=== PATIENT | male | born 1945 | race Caucasian/White ===

== ENCOUNTER 2018-01-24 15:46 | Emergency (ER) | payer MEDICARE, OTHER ==
[~2018-01-24] VITALS: Ht 190.5 cm; Wt 127.0 kg
[~2018-01-24 15:46] MED LIST: ASPI325 PO; ASPI325EC PO; ATEN25 PO; ATOR40TA PO; CLOB.05TC TOP; ERGO400 PO; EZET10 PO; NAPR220 PO; OXYACE5T PO; PROM25 PO; RAMI2.5 PO; RANO500T PO; SILD50TA PO; STELARA45 MG/0.5
[2018-01-24 16:42] LABS: BASOPHILS ABSOLUTE AUTO 0.02 K/mm3 (0.00-0.23); BASOPHILS PERCENT AUTO 0 % (0-2); EOSINOPHILS ABSOLUTE AUTO 0.13 K/mm3 (0.00-0.68); EOSINOPHILS PERCENT AUTO 2 % (0-6); Hematocrit 44.6 % (37.0-53.0); Hemoglobin 14.4 g/dL (13.5-17.5); IMMATURE GRAN ABSOLUTE AUTO 0.04 K/mm3 (0.00-0.10); IMMATURE GRAN PERCENT AUTO 1 % (0-1); LYMPHOCYTES ABSOLUTE AUTO 1.87 K/mm3 (0.84-5.20); LYMPHOCYTES PERCENT AUTO 25 % (21-46); MONOCYTES ABSOLUTE AUTO 0.56 K/mm3 (0.16-1.47); MONOCYTES PERCENT AUTO 7 % (4-13); Mean Corpuscular HGB 31.2 pg (26.0-34.0); Mean Corpuscular HGB Conc 32.3 g/dL (31.5-36.5); Mean Corpuscular Volume 97 fL (80-100); Mean Platelet Volume 10.8 fL (9.1-12.4); NEUTROPHILS PERCENT AUTO 66 % (41-73); Platelet Count 227 K/mm3 (150-400); RDW Coefficient Variation 11.9 % (11.7-14.2); RDW Standard Deviation 42.3 fL (35.1-46.3); Red Blood Cell Count 4.62 M/mm3 (4.30-5.90); White Blood Cell Count 7.62 K/mm3 (4.00-11.30)
[2018-01-24 17:05] LABS: Alanine Aminotransfer (ALT/SGP 22 U/L (12-78); Albumin, Blood 3.9 g/dL (3.4-5.0); Alk Phos 89 U/L (50-136); Anion Gap 5 mmol/L (6-16); Aspartate Aminotrans (AST/SGOT 20 U/L (12-37); Bilirubin, Total 0.7 mg/dL (0.1-1.0); Blood Urea Nitrogen 17 mg/dL (8-24); Bun/Creatinine Ratio 15.7 (12.0-20.0); CO2, Blood 29 mmol/L (21-32); Chloride, Blood 106 mmol/L (98-108); Creatinine, Blood 1.08 mg/dL (0.60-1.20); Globulin, Blood 3.8 g/dL (2.2-4.0); Glomerular Filtration Rate >60 (60-); Glucose, Blood 95 mg/dL (70-99); Potassium, Blood 4.4 mmol/L (3.5-5.5); Sodium, Blood 140 mmol/L (136-145); Total Protein, Blood 7.7 g/dL (6.4-8.2)
[2018-01-24] MEDS ORDERED: VITAMIN D-32000 UNIT PO (17:10)
[2018-01-24] MEDS ORDERED: MECL12.5 PO (19:24)
[2018-04-26] MEDS ORDERED: Colace100 MG PO (14:44)
[2018-04-26] MEDS ORDERED: STELARA90 MG/1 ML SC (14:46)
== END 2018-01-24 19:47 | disposition home or self-care (01) ==
LOC: ER 15:46
PROVIDERS: Internal Medicine
DX: R42 Dizziness and giddiness (principal); I25.10 Atherosclerotic heart disease of native coronary artery without angina pectoris; I10 Essential (primary) hypertension; Z79.899 Other long term (current) drug therapy; Z79.82 Long term (current) use of aspirin; Z87.891 Personal history of nicotine dependence
CPT/HCPCS: 36415; 80053; 84484; 85025; 93005; 93010; 99283

== ENCOUNTER 2018-03-22 05:40 | Day surgery (SDC) | payer MEDICARE, OTHER ==
[~2018-03-22] VITALS: Ht 190.5 cm; Wt 120.0 kg
[~2018-03-22 05:40] MED LIST changes: +MECL12.5 PO; +VITAMIN D-32000 UNIT PO
== END 2018-03-22 09:45 | disposition home or self-care (01) ==
LOC: MHTC 05:40
PROC: 02HK3JZ Insertion of Pacemaker Lead into Right Ventricle, Percutaneous Approach (ICD-10-PCS; principal; 2018-03-22)
PROC: 02H63JZ Insertion of Pacemaker Lead into Right Atrium, Percutaneous Approach (ICD-10-PCS; principal; 2018-03-22)
PROC: 0JH606Z Insertion of Pacemaker, Dual Chamber into Chest Subcutaneous Tissue and Fascia, Open Approach (ICD-10-PCS; principal; 2018-03-22)
PROC: B51NYZZ Fluoroscopy of Left Upper Extremity Veins using Other Contrast (ICD-10-PCS; principal; 2018-03-22)
DX: I49.5 Sick sinus syndrome (principal); I10 Essential (primary) hypertension; E78.00 Pure hypercholesterolemia, unspecified; G47.33 Obstructive sleep apnea (adult) (pediatric); I25.118 Atherosclerotic heart disease of native coronary artery with other forms of angina pectoris
CPT/HCPCS: 33208; 71046; 93005; 93010; 99152; 99153; C1785; C1898; J0690; J1644; J2250; J3010; J7030; J7040; Q9967

== ENCOUNTER 2018-04-27 05:37 | Day surgery (SDC) | payer MEDICARE, OTHER ==
[~2018-04-27] VITALS: Ht 190.5 cm; Wt 121.3 kg
[~2018-04-27 05:37] MED LIST changes: +Colace100 MG PO; +STELARA90 MG/1 ML SC
[2018-04-28] MEDS ORDERED: CLOP75 PO (09:57)
== END 2018-04-28 10:24 | disposition home or self-care (01) ==
LOC: MHTC 05:37 → PCU 15:51 → MHTC 04-28 10:24
PROC: 027034Z Dilation of Coronary Artery, One Artery with Drug-eluting Intraluminal Device, Percutaneous Approach (ICD-10-PCS; principal; 2018-04-27)
PROC: 4A033BC Measurement of Arterial Pressure, Coronary, Percutaneous Approach (ICD-10-PCS; principal; 2018-04-27)
DX: I25.10 Atherosclerotic heart disease of native coronary artery without angina pectoris (principal); I73.9 Peripheral vascular disease, unspecified; E66.9 Obesity, unspecified; Z87.891 Personal history of nicotine dependence; I10 Essential (primary) hypertension; E78.5 Hyperlipidemia, unspecified; E78.00 Pure hypercholesterolemia, unspecified; G47.33 Obstructive sleep apnea (adult) (pediatric)
CPT/HCPCS: 37252; 85347; 93005; 93010; 93455; 99152; 99153; C1725; C1753; C1769; C1874; C1894; C9600; J1644; J2250; J2720; J3010; J7030; Q9967

== ENCOUNTER → 2021-07-02 | Outpatient (CLI) | payer MEDICARE, OTHER ==
[~2021-07-02] MED LIST changes: +CLOP75 PO
== END ==
LOC: LAB 11:35 → LAB SHORT 11:35
DX: D48.5 Neoplasm of uncertain behavior of skin (principal); L28.1 Prurigo nodularis
CPT/HCPCS: 88305; 88312

== ENCOUNTER 2021-10-17 06:38 | Day surgery (SDC) | payer MEDICARE, OTHER ==
[~2021-10-17] VITALS: Ht 190.5 cm; Wt 133.0 kg
[~2021-10-17 06:38] MED LIST changes: +Crestor20 MG PO; +PANT40 PO; +XARELTO2.5 M1 PO; +XARELTO20 MG PO
[2021-10-17] MEDS ORDERED: AMLO5 PO (07:29)
--- NOTE | 2021-10-17 09:10 | NUR ---
RETURNED TO RECOVERY ROOM VIA [facility]NEY. LEFT GROIN SITE SOFT NONTENDER. NO BLEEDING.
[2021-10-17] MEDS ORDERED: XARELTO20 MG PO (09:19)
--- NOTE | 2021-10-17 09:30 | NUR ---
DR. ANDRE HERE TO DISCUSS PROCEDURE WITH PT AND .
--- NOTE | 2021-10-17 12:05 | NUR ---
AMBULATED TO BATHROOM. TOLERATED WELL. NO BLEEDING AT SITE. 1215 DRESSING FOR DISCHARGE. IV REMOVED INTACT.2X2,COBAN AND MANUAL PRESSURE HELD.
--- NOTE | 2021-10-17 12:30 | NUR ---
DISCHARGED HOME VIA WHEELCHAIR. DRIVING
== END 2021-10-17 12:27 | disposition home or self-care (01) ==
LOC: MHTC 06:38
DX: T82.855A Stenosis of coronary artery stent, initial encounter (principal); I25.118 Atherosclerotic heart disease of native coronary artery with other forms of angina pectoris; I25.82 Chronic total occlusion of coronary artery; I11.0 Hypertensive heart disease with heart failure; I50.9 Heart failure, unspecified; I73.9 Peripheral vascular disease, unspecified; E66.9 Obesity, unspecified; E78.00 Pure hypercholesterolemia, unspecified; E78.5 Hyperlipidemia, unspecified; Z95.1 Presence of aortocoronary bypass graft; Y83.8 Other surgical procedures as the cause of abnormal reaction of the patient, or of later complication, without mention of misadventure at the time of the procedure
CPT/HCPCS: 76937; 93455; 99152; 99153; A9270; C1760; C1769; C1894; J1644; J2250; J2370; J3010; J7030; J7050; Q9967

== ENCOUNTER 2022-06-30 11:38 | Day surgery (SDC) | payer MEDICARE, OTHER ==
[~2022-06-30] VITALS: Ht 193 cm; Wt 121.1 kg
[~2022-06-30 11:38] MED LIST changes: +AMLO5 PO
== END 2022-06-30 13:55 | disposition home or self-care (01) ==
LOC: ORSCSDS 11:38
PROVIDERS: Surgery
PROC: 0DBK8ZX Excision of Ascending Colon, Via Natural or Artificial Opening Endoscopic, Diagnostic (ICD-10-PCS; principal; 2022-06-30 13:00)
DX: Z12.11 Encounter for screening for malignant neoplasm of colon (principal); Z86.010 Personal history of colon polyps; D12.2 Benign neoplasm of ascending colon; D12.3 Benign neoplasm of transverse colon; K57.30 Diverticulosis of large intestine without perforation or abscess without bleeding; G47.33 Obstructive sleep apnea (adult) (pediatric); K21.9 Gastro-esophageal reflux disease without esophagitis; I25.2 Old myocardial infarction; Z95.0 Presence of cardiac pacemaker; Z95.1 Presence of aortocoronary bypass graft; I25.810 Atherosclerosis of coronary artery bypass graft(s) without angina pectoris; Z87.891 Personal history of nicotine dependence; Z79.01 Long term (current) use of anticoagulants; Z79.82 Long term (current) use of aspirin; Z79.899 Other long term (current) drug therapy
CPT/HCPCS: 88305; J2704; J7120

== ENCOUNTER 2023-06-14 10:02 | Day surgery (SDC) | payer MEDICARE, OTHER ==
[~2023-06-14] VITALS: Ht 190.5 cm; Wt 127.4 kg
[~2023-06-14 10:02] MED LIST changes: +NITR.4SL SL
[2023-06-14 11:03] VITALS: BP 116/78
--- NOTE | 2023-06-14 11:06 | NUR ---
Ambulatory in Day Surgery History, Chart, Medications and Allergies reviewed before start of procedure.Lungs clear T/O to Auscultation. Patient confirms NPO status and agrees with scheduled surgery. Patient States Post-Procedure ride home has been arranged.
--- NOTE | 2023-06-14 11:36 | NUR ---
06/14/23 [address] SOLIMAN'S ANESTHESIA RECORD.
[2023-06-14 12:06] VITALS: BP 98/49
--- NOTE | 2023-06-14 12:14 | NUR ---
DR KEMP AT BEDSIDE GIVING PATIENT AND SIGNIFICANT OTHER RESULTS OF PROCEDURE AND CHANGES TO MEDICATION. PRESCRIPTION FOR PANTOPRAZOLE GIVEN TO PATIENT TO FILL. PATIENT STATES HE WAS INSTRUCTED TO RESTART ASA PREVIOUSLY PRESCRIBED TOMORROW.
[2023-06-14 12:30] VITALS: BP 111/59
--- NOTE | 2023-06-14 12:48 | NUR ---
Patient up to Ambulate independently. Gait steady. Discharge instructions reviewed with patient. Patient verbalizes understanding. Copy given to patient to take home.Rx for Naomisec phoned to [facility]
== END 2023-06-14 12:48 | disposition home or self-care (01) ==
LOC: ORSCMMR 10:02 → ORD 11:45 → ORSCMMR 12:48
PROVIDERS: Surgery
PROC: 0DB78ZX Excision of Stomach, Pylorus, Via Natural or Artificial Opening Endoscopic, Diagnostic (ICD-10-PCS; principal; 2023-06-14 11:45)
PROC: 0DB48ZX Excision of Esophagogastric Junction, Via Natural or Artificial Opening Endoscopic, Diagnostic (ICD-10-PCS; principal; 2023-06-14 11:45)
DX: R13.10 Dysphagia, unspecified (principal); K21.9 Gastro-esophageal reflux disease without esophagitis; K29.70 Gastritis, unspecified, without bleeding; K22.10 Ulcer of esophagus without bleeding; I48.91 Unspecified atrial fibrillation; Z79.01 Long term (current) use of anticoagulants; E78.5 Hyperlipidemia, unspecified; G47.33 Obstructive sleep apnea (adult) (pediatric); Z87.891 Personal history of nicotine dependence; E03.9 Hypothyroidism, unspecified; E66.9 Obesity, unspecified; Z68.35 Body mass index [BMI] 35.0-35.9, adult; Z85.46 Personal history of malignant neoplasm of prostate
CPT/HCPCS: 88305; 88342; J2001; J2704; J7120

== ENCOUNTER 2023-06-24 09:17 | Emergency (ER) | payer MEDICARE, OTHER ==
[~2023-06-24] VITALS: Ht 190.5 cm; Wt 127.9 kg
[2023-06-24 10:49] LABS: BASOPHILS ABSOLUTE AUTO 0.02 K/mm3 (0.00-0.23); BASOPHILS PERCENT AUTO 0 % (0-2); EOSINOPHILS ABSOLUTE AUTO 0.17 K/mm3 (0.00-0.68); EOSINOPHILS PERCENT AUTO 2 % (0-6); Hematocrit 34.8 % (37.0-53.0); Hemoglobin 10.9 g/dL (13.5-17.5); IMMATURE GRAN ABSOLUTE AUTO 0.02 K/mm3 (0.00-0.10); IMMATURE GRAN PERCENT AUTO 0 % (0-1); LYMPHOCYTES ABSOLUTE AUTO 1.67 K/mm3 (0.84-5.20); LYMPHOCYTES PERCENT AUTO 23 % (21-46); MONOCYTES PERCENT AUTO 8 % (4-13); Mean Corpuscular HGB 29.1 pg (26.0-34.0); Mean Corpuscular HGB Conc 31.3 g/dL (31.5-36.5); Mean Corpuscular Volume 93 fL (80-100); Mean Platelet Volume 10.6 fL (9.1-12.4); NEUTROPHILS ABSOLUTE AUTO 4.86 K/mm3 (1.96-9.15); NEUTROPHILS PERCENT AUTO 66 % (41-73); Platelet Count 217 K/mm3 (150-400); RDW Coefficient Variation 13.8 % (11.7-14.2); RDW Standard Deviation 47.1 fL (35.1-46.3); Red Blood Cell Count 3.74 M/mm3 (4.30-5.90); White Blood Cell Count 7.34 K/mm3 (4.00-11.30)
[2023-06-24 11:05] LABS: Albumin, Blood 3.5 g/dL (3.4-5.0); Bilirubin, Total 0.5 mg/dL (0.1-1.0); Bun/Creatinine Ratio 17.1 (12.0-20.0); Calcium, Blood 8.7 mg/dL (8.5-10.1); Creatinine, Blood 1.05 mg/dL (0.60-1.20); Globulin, Blood 3.4 g/dL (2.2-4.0); Potassium, Blood 4.4 mmol/L (3.5-5.5); Total Protein, Blood 6.9 g/dL (6.4-8.2)
[2023-06-24 12:45] VITALS: BP 97/68
== END 2023-06-24 13:24 | disposition home or self-care (01) ==
LOC: ER 09:17
PROVIDERS: Physician Assistant
DX: I25.118 Atherosclerotic heart disease of native coronary artery with other forms of angina pectoris (principal); Z87.891 Personal history of nicotine dependence; Z88.8 Allergy status to other drugs, medicaments and biological substances; Z79.899 Other long term (current) drug therapy
CPT/HCPCS: 71046; 80053; 84484; 85025; 93005; 93010

== ENCOUNTER 2023-08-11 13:31 | Emergency (ER) | payer MEDICARE, OTHER ==
[~2023-08-11] VITALS: Ht 190.5 cm; Wt 124.7 kg
[2023-08-11] MEDS ORDERED: Aspir 8181 MG PO (13:59)
[2023-08-11] MEDS ORDERED: PLAVIX75 MG PO (13:59)
[2023-08-11] MEDS ORDERED: SOAANZ20 M3 PO (14:00)
[2023-08-11] MEDS ORDERED: AMOCLA875 PO (16:04)
[2023-08-11 16:26] VITALS: BP 102/59
== END 2023-08-11 16:28 | disposition home or self-care (01) ==
LOC: ER 13:31
DX: S61.012A Laceration without foreign body of left thumb without damage to nail, initial encounter (principal); Z23 Encounter for immunization; W26.8XXA Contact with other sharp object(s), not elsewhere classified, initial encounter; Z88.8 Allergy status to other drugs, medicaments and biological substances; Z79.899 Other long term (current) drug therapy; Z79.82 Long term (current) use of aspirin; I10 Essential (primary) hypertension; Z87.891 Personal history of nicotine dependence
CPT/HCPCS: 12002; 73140; 90471; 90715; 99283-25

== ENCOUNTER 2024-10-18 05:36 | Day surgery (SDC) | payer MEDICARE, OTHER ==
[~2024-10-18 05:36] MED LIST changes: +AMOCLA875 PO; +Aspir 8181 MG PO; +PLAVIX75 MG PO; +SOAANZ20 M3 PO
== END 2024-10-18 23:00 | disposition home or self-care (01) ==
LOC: CT 05:36
DX: I70.8 Atherosclerosis of other arteries (principal); J43.9 Emphysema, unspecified; I65.21 Occlusion and stenosis of right carotid artery
CPT/HCPCS: 71275; Q9967

== ENCOUNTER → 2024-10-25 | Outpatient (CLI) | payer MEDICARE | LOC: LAB 08:53 → LAB SHORT 08:53 | DX: R93.89 Abnormal findings on diagnostic imaging of other specified body structures (principal) | CPT/HCPCS: 87070; 87077; 87185; 87205 ==

== ENCOUNTER → 2024-10-26 | Outpatient (CLI) | payer MEDICARE, OTHER | END | disposition home or self-care (01) | LOC: LAB SHORT 09:00 → LAB 09:00 | DX: R93.89 Abnormal findings on diagnostic imaging of other specified body structures (principal) | CPT/HCPCS: 87116 ==

== ENCOUNTER → 2025-03-09 | Outpatient (CLI) | payer MEDICARE, OTHER ==
[2025-03-10 08:48] LABS: Stool Occult Bld Immuno 1 Negative (NEGATIVE)
== END ==
LOC: LAB SHORT 13:49 → LAB 13:49
PROVIDERS: Family Medicine
DX: D50.8 Other iron deficiency anemias (principal)
CPT/HCPCS: 82274